=== PATIENT | male | born 2000 | race Two or more races ===

== ENCOUNTER 2024-08-12 09:26 | Emergency (ER) | payer MEDICAID, SELFPAY ==
[2024-08-12 09:56] VITALS: BP 111/71; PULSE 100; RESP 16; TEMP 36.7; O2SAT 98; BMI 22.1
--- NOTE | 2024-08-12 10:08 | XR_ITS ---
Examination: Testicular sonography complete TECHNIQUE: Grayscale sonographic images testes, assessment arterial inflow venous outflow Doppler spectral analysis carful analysis Exam date and time: August 12, 2024 1034 hours INDICATIONS: Right testicular pain beginning one week ago. FINDINGS: Right testis 4.6 cm epididymis 2.7 cm Mild varicocele Arterial flow testicle. No testicular mass Mild hydrocele Left testis 4.5 cm epididymis 4.0 cm Arterial flow testicle. No testicular mass Mild varicocele Bilateral microlithiasis IMPRESSION: No testicular torsion or testicular mass Bilateral epididymitis Mild bilateral lateral varicoceles
--- NOTE | 2024-08-12 10:09 | PD.EDRME ---
Rapid Medical Screening Exam RME Arrival date/time: 08/12/24 09:26 24-year-old male with no known medical history presents to the emergency room with a chief complaint of left-sided testicular pain and swelling x 1 week. Patient is also complaining of dysuria. I have greeted and performed a focused initial assessment of this patient. A comprehensive ED assessment and evaluation of the patient, analysis of all test results, and completion of the medical decision making process will be conducted by additional ED providers. Chief Complaint: Urogenital-Male Time Seen by Provider: 08/12/24 10:03 Vital signs: Vital Signs Temperature 98.0 F 08/12/24 09:56 Pulse Rate 100 08/12/24 09:56 Respiratory Rate 16 08/12/24 09:56 Blood Pressure 111/71 08/12/24 09:56 Pulse Oximetry (%) 98 08/12/24 09:56 Oxygen Delivery Method Room Air 08/12/24 09:56 Vital signs reviewed by provider: Yes
[2024-08-12 10:31] LABS: Basophils # (Auto) 0.1 Thou/mm3 (0.0-0.2); Basophils % (Auto) 1 % (0-2.5); Eosinophils # (Auto) 0.1 Thou/mm3 (0.0-0.5); Eosinophils % (Auto) 2 % (0-10); Hematocrit 42.7 % (41.0-53.0); Hemoglobin 14.7 g/dL (13.5-16.0); Immature Granulocytes % (Auto) 0 % (0-0); Immature Granulocytes Auto 0.02 Thou/mm3 (0.00-0.00); Lymphocytes % (Auto) 16 % (10-50); Mean Corpuscular HGB Conc 34.4 g/dl (31.0-37.0); Mean Corpuscular Hemoglobin 29.7 pg (25.0-35.0); Mean Corpuscular Volume 86 fL (80-100); Monocytes # (Auto) 0.4 Thou/mm3 (0.0-0.8); Monocytes % (Auto) 7 % (0-12); Neutrophils # (Auto) 4.6 Thou/mm3 (1.8-7.7); Neutrophils % (Auto) 74 % (37-80); Nucleated Red Blood Cell % 0 /100 WBC (0); Platelet Count 274 Thou/mm3 (140-440); RDW Standard Deviation 40.2 fL (35.1-43.9); Red Blood Count 4.95 Miln/mm3 (4.50-5.90); White Blood Count 6.2 Thou/mm3 (3.8-10.6)
[2024-08-12 10:56] LABS: Alanine Aminotransferase 16 U/L (10-49); Albumin, Serum 4.5 gm/dL (3.5-5.0); Albumin/Globulin Ratio 1.5 (1.2-2.2); Alkaline Phosphatase 117 U/L (46-116); Anion Gap 7 (7-16); Aspartate Amino Transferase 19 U/L (0-34); BUN/Creatinine Ratio 12 Ratio (12-20); Bilirubin,Total 0.6 mg/dL (0.3-1.2); Blood Urea Nitrogen 11 mg/dL (9-23); Calcium 9.6 mg/dL (8.3-10.6); Calcium (Corrected) 9.6 mg/dL (8.5-10.1); Chloride 103 mMol/L (98-107); Creatinine (Component) 0.9 mg/dL (0.6-1.3); Estimated Creatinine Clearance 112.5 mL/min (>60); Glucose 56 mg/dL (74-106); Osmolality,Calculated 278 (275-295); Potassium 3.9 mMol/L (3.4-5.1); Sodium 141 mMol/L (136-145); Total Protein 7.5 gm/dL (5.7-8.2); eGFR > 60 See Note
[2024-08-12 11:15] LABS: Syphilis Reactive (Nonreactive)
[2024-08-12 11:16] LABS: MHATP/TP-PA* See Sep Rpt
[2024-08-12 11:21] LABS: Collection Type, Urine Clean Catch
[2024-08-12 11:28] VITALS: BP 117/76; PULSE 102; RESP 18; TEMP 37; O2SAT 100
[2024-08-12 11:29] LABS: Bacteria,Urine Rare; Bilirubin,Urine Negative (Negative); Blood,Urine Negative (Negative); Clarity,Urine Clear (Clear/Hazy); Color,Urine Yellow (Lt Yel-Yel); Glucose, Urine Negative (Negative); Ketones,Urine Negative (Negative); Leukocyte Esterase,Urine Positive (Negative); Nitrite,Urine Negative (Negative); Protein,Urine Trace (Neg - Trace); RBC,Urine 8 /hpf (0-3); Specific Gravity,Urine 1.027 (1.001-1.035); Squamous Epithelial Cell,Urine < 1 /hpf (0-5); WBC,Urine 35 /hpf (0-5)
--- NOTE | 2024-08-12 11:31 | PD.EDMALE ---
ED Male Genitalurinary RME/HPI General Chief complaint: Urogenital-Male Stated complaint: testicular swelling/pain x 1 week Time Seen by Provider: 08/12/24 10:03 Arrival date/time: 08/12/24 09:26 RME / HPI RME / HPI Narrative: 08/12/24 09:26 24-year-old male wiI have greeted and performed a focused initial assessment of this patient. A comprehensive ED assessment and evaluation of the patient, analysis of all test results, and completion of the medical decision making process will be conducted by additional ED providers.h no known medical history presents to the emergency room with a chief complaint of left-sided testicular pain and swelling x 1 week. Patient is also complaining of dysuria. I have greeted and performed a focused initial assessment of this patient. A comprehensive ED assessment and evaluation of the patient, analysis of all test results, and completion of the medical decision making process will be conducted by additional ED providers. Related Data Allergies Allergy/AdvReac Type Severity Reaction Status Date / Time No Known Allergies Allergy Verified 08/12/24 09:27 Course Orders Category Date Time Status US testicular Stat Exams 08/12/24 10:08 Completed CBC Stat Lab 08/12/24 10:16 Completed CMP [Comprehensive Metabolic Panel] Stat Lab 08/12/24 10:16 Completed Chlamydia/GC/TV - PCR Stat Lab 08/12/24 11:11 Received MHATP/TP-PA* Stat Lab 08/12/24 10:16 Received Syphilis Stat Lab 08/12/24 10:16 Completed UA, C/S IF [Urinalysis, C/S if Indicated] Stat Lab 08/12/24 11:11 Received Vital Signs Vital signs: Vital Signs Temperature 98.0 F 08/12/24 09:56 Pulse Rate 100 08/12/24 09:56 Respiratory Rate 16 08/12/24 09:56 Blood Pressure 111/71 08/12/24 09:56 Pulse Oximetry (%) 98 08/12/24 09:56 Oxygen Delivery Method Room Air 08/12/24 09:56 Discharge Plan Prescriptions/Referrals Referrals: No Primary/Family,Physician [Primary Care Provider] - In 1 week Patient/Caregiver Discharge Instructions Print Language: Mauritian
[2024-08-12 11:35] LABS: Culture Indicated,Urine Yes
--- NOTE | 2024-08-12 12:17 | PD.EDMALE ---
ED Male Genitalurinary RME/HPI General Chief complaint: Urogenital-Male Stated complaint: testicular swelling/pain x 1 week Time Seen by Provider: 08/12/24 10:03 Arrival date/time: 08/12/24 09:26 24-year-old Icelandic-speaking male presents with a 5-day history of left testicular pain, left pelvic pain, as well as dysuria and penile purulent drainage. He has had low back pain for approximately 1 month which he believes is related to holding his urine. He denies fever chills, nausea or vomiting, diarrhea or abdominal pain. Mode of arrival: ambulatory Limitations: language barrier (Television Program Director used) RME / HPI RME / HPI Narrative: 08/12/24 09:26 24-year-old male rsoI have greeted and performed a focused initial assessment of this patient. A comprehensive ED assessment and evaluation of the patient, analysis of all test results, and completion of the medical decision making process will be conducted by additional ED providers.h no known medical history presents to the emergency room with a chief complaint of left-sided testicular pain and swelling x 1 week. Patient is also complaining of dysuria. I have greeted and performed a focused initial assessment of this patient. A comprehensive ED assessment and evaluation of the patient, analysis of all test results, and completion of the medical decision making process will be conducted by additional ED providers. MD Complaint: testicle pain, penile discharge and dysuria Onset (ago): day(s) (5) Duration: constant Location: penis, left testicle and left inguinal region Relieving factors: none Exacerbating factors: urination Associated symptoms: Reports discharge and dysuria; Denies swelling, fever or nausea/vomiting Related Data Allergies Allergy/AdvReac Type Severity Reaction Status Date / Time No Known Allergies Allergy Verified 08/12/24 09:27 Review of Systems Review of Systems Systems Reviewed: All systems reviewed, normal except as documented Constitutional Constitutional: Reports system reviewed and no additional complaints, except as documented Genitourinary Genitourinary: Reports system reviewed and no additional complaints, except as documented, Reports dysuria, Denies painful ejaculations, Reports penile discharge and Reports testicular pain Musculoskeletal Musculoskeletal: Reports back pain (Lumbar sacral region) ED Exam General Limitations: Present language barrier (Television Program Director used) General appearance: Present alert and in no apparent distress Head Head exam: Present atraumatic and normal inspection Eye Eye exam: Present normal appearance; Absent scleral icterus or conjunctival injection Neck Neck exam: Present normal inspection Chest Chest inspection: Present normal inspection Respiratory Respiratory exam: Present normal lung sounds bilaterally; Absent respiratory distress Cardiovascular Cardiovascular exam: Present regular rate and normal rhythm Abdominal Exam Abdominal exam: Present soft and normal bowel sounds; Absent distention, guarding or rebound Rectal Exam Rectal exam: Present deferred exam: Present testicular tenderness (Left) Extremities Exam Extremities exam: Present normal inspection Back Exam Back exam: Present full ROM Neurological Exam Neurological exam: Present alert and oriented X3 Psychiatric Psychiatric exam: Present normal affect and normal mood Skin Skin exam: Present warm, dry, intact and normal color Course Orders Category Date Time Status US testicular Stat Exams 08/12/24 10:08 Completed CBC Stat Lab 08/12/24 10:16 Completed CMP [Comprehensive Metabolic Panel] Stat Lab 08/12/24 10:16 Completed Chlamydia/GC/TV - PCR Stat Lab 08/12/24 11:11 Received MHATP/TP-PA* Stat Lab 08/12/24 10:16 Received Syphilis Stat Lab 08/12/24 10:16 Completed UA, C/S IF [Urinalysis, C/S if Indicated] Stat Lab 08/12/24 11:11 Completed Urine Culture Stat Lab 08/12/24 11:11 Received [email or web address] [Rocephin] Med 08/12/24 14:17 Once 500 mg IM X1 ONE Vital Signs Vital signs: Vital Signs Temperature 98.0 F 08/12/24 09:56 Pulse Rate 100 08/12/24 09:56 Respiratory Rate 16 08/12/24 09:56 Blood Pressure 111/71 08/12/24 09:56 Pulse Oximetry (%) 98 08/12/24 09:56 Oxygen Delivery Method Room Air 08/12/24 09:56 Discharge Plan Prescriptions/Referrals Referrals: No Primary/Family,Physician [Primary Care Provider] - In 1 week Patient/Caregiver Discharge Instructions Print Language: Icelandic
[2024-08-12] MEDS: CEFTRIAXONE SODIUM 500 MG VIAL IM (14:53)
[2024-08-12 17:05] LABS: Chlamydia trachomatis PCR Positive (Not Detect); Neisseria Gonorrhoeae DNA PCR Negative (Not Detect); Trichomonas Negative (Negative)
== END 2024-08-12 14:57 | disposition home or self-care (01) ==
PROVIDERS: Nurse Practitioner Family; Emergency Provider Emergency Medicine
DX: N50.812 Left testicular pain (principal); N50.89 Other specified disorders of the male genital organs; R30.0 Dysuria
CPT/HCPCS: 36415; 76870; 80053; 81001; 85025; 86780; 87086; 87491; 87591; 87661; 96372; 99284; J0696